=== PATIENT | female | born 1945 | race Caucasian/White ===

== ENCOUNTER 2016-08-15 12:01 | Day surgery (SDC) | payer MEDICARE, OTHER ==
--- NOTE | ~2016-08-15 | OP ---
Record Of Operation [facility] [address] [place]. [address] NAME: ANGI COOLEY : 47 STATUS : REG [facility] [place] PAT#: [id number] AGE: 71 ADM/REG DATE : 08/15/16 MR#: [id number] REPORT SERV DATE: 08/15/16 DICTATED BY: MASON CASSIDY DATE: 08/15/16 REPORT STATUS : Draft TRANSCRIBED BY: MODL DATE: 08/15/16 DATE OF PROCEDURE: 08/15/2016 TIME: 1445 hours. PROCEDURE: Ultrasound guided left-sided thoracentesis. INDICATION: A large left-sided pleural effusion. PROCEDURE COPIER AND PRINTER FIELD TECHNICIAN: Kaleb Cassidy PA-C. CONSENT: Consent was obtained from the patient prior to the procedure. Diagnostic and therapeutic indications for thoracentesis were discussed as well as risks including life- threatening bleeding, pneumothorax, and even the possible necessity of chest tube placement. Benefits and alternatives were explained at length. Prior to the procedure, imaging studies were reviewed with Dr. Hernandez who agreed with the indication to proceed with thoracentesis. PROCEDURE SUMMARY: A time out was performed verifying correct patient, procedure, site, and positioning. The patient's left side was prepped and draped in a sterile manner using chlorhexidine scrub after the appropriate level was percussed and confirmed by ultrasound. U/S images were obtained and placed within the chart. 2% lidocaine with epinephrine was then used to anesthetize the region. A finder needle was then used to attempt aspiration of pleural fluid. Unfortunately, the needle in the kit was not long enough to traverse the patient's 6 cm chest wall depth. Then, a 22-gauge spinal needle was attached to the lidocaine syringe and advanced into the pleural space. Serosanguineous fluid was removed. Continuing on, the patient had 1.9 L of serosanguineous fluid removed. Towards the end of the procedure, the patient did start to cough quite forcefully. At this time, the procedure was stopped briefly. The patient continued to demonstrate a strong cough and as such, the procedure was ended at this point. A postprocedure chest x-ray is pending at the time of this dictation. The fluid will be sent for several studies. ESTIMATED BLOOD LOSS: Minimal. GBS/MODL Mason Cassidy PA-C / [id number] CC: Mason Cassidy PA-C
[~2016-08-15 12:01] MED LIST: ALLER-TEC; ALLER-TEC PO; AMARYL4 PO; APRES25 PO; APRES50 PO; ASA5GR PO; ASAEC PO; BREO ELLIPTA INH; CETIRIZINE PO; DEMA20 PO; FISH-EPA1000 MG PO; HYDRALAZINE100 MG PO; HYDROCHLOROT25 MG PO; IRON PO; IRON325 MG PO; ISOSORB DIN30 MG PO; LEVOTHYROXIN50 MCG PO; LIPITOR40 PO; MUCOMYST; MULTI-VIT HP OR; NORV10 PO; OTC VITAMIN D PO; PROAIR HFA; PROAIR HFA INH; SODBICAR10 PO; SYN.025B PO; TRANDAT100 PO; VITAMIN D31000 UNIT PO; ZYRTEC ALLGY10 MG PO
[2016-08-15 12:25] LABS: BASOPHILS 0.2 %; BASOPHILS ABSOLUTE 0.01 10/3/uL (0.0-0.16); EOSINOPHILS 2.4 %; HEMATOCRIT 28.3 % (36.0-48.0); LYMPHOCYTES 17.1 %; LYMPHOCYTES ABSOLUTE 0.72 10/3/uL (0.67-4.30); MEAN CORPUS HGB CONC 31.8 g/dL (32.0-36.0); MEAN CORPUSCULAR VOLUME 87.9 fL (80-100); MEAN PLATELET VOLUME 8.6 fL (9.2-13.0); MONOCYTES 8.1 %; MONOCYTES ABSOLUTE 0.34 10/3/uL (0.21-1.20); NEUTROPHILS 72.2 %; NEUTROPHILS ABSOLUTE 3.05 10/3/uL (2.02-8.40); PLATELET COUNT 144 10/3/uL (150-400); RBC DISTRIBUTION WIDTH 15.4 % (12.0-16.0); RED CELL COUNT 3.22 10/6/uL (4.0-5.6); WHITE BLOOD CELLS 4.2 10/3/uL (4.5-10.5)
[2016-08-15 12:26] LABS: MANUAL DIFF NO %
[2016-08-15 12:33] LABS: INTERNATIONAL NORMAL RATI 1.1 UNITS (-); PROTIME (NOT ORD) 14.5 SEC (12.0-14.5)
[2016-08-15 16:05] LABS: TOTAL PROTEIN 6.4 G/DL (6.0-8.5)
[2016-08-15 16:55] LABS: GLUCOSE BODY FL (NOT ORD) 158 MG/DL; LDH BODY FLUID (NOT ORD) 118 U/L; PROTEIN BODY FLUID 3.9 G/DL
[2016-08-15 17:40] LABS: BD FL LYMPH (NOT ORD) 22 %; BD FL SOURCE (NOT ORD) LEFT PLEURAL FLUID; BF BASO (NOT OF) 0 %; BF LARGE MONONUCLEAR 74 %; BODY FLUID EOS (NOT ORD) 0 %; BODY FLUID SEG (NOT ORD) 4 %
[2016-08-15 18:04] LABS: BF TOTAL CELL CT (NOT ORD 562 /MM3; BODY FLUID RBC (NOT ORD) 6666 /MM3
[2016-09-16] MEDS ORDERED: FLONASE NAS (17:49)
[2016-09-16] MEDS ORDERED: ULORIC40 MG PO (17:50)
[2016-11-25] MEDS ORDERED: LEVAQUIN750 MG PO (00:05)
[2016-11-25] MEDS ORDERED: SODBICAR10 PO (00:05)
[2016-11-25] MEDS ORDERED: ZYRTEC ALLGY10 MG PO (00:05)
[2016-11-25] MEDS ORDERED: HYDRALAZINE100 MG PO (00:05)
[2016-11-25] MEDS ORDERED: ULORIC40 MG PO (00:06)
[2016-11-25] MEDS ORDERED: TRANDAT100 PO (00:06)
[2016-11-25] MEDS ORDERED: HCTZ25B PO (00:07)
[2016-11-25] MEDS ORDERED: SYN.025B PO (00:08)
[2016-11-25] MEDS ORDERED: NORV5 PO (00:08)
[2016-11-25] MEDS ORDERED: COZAAR100 MG PO (00:08)
[2016-11-25] MEDS ORDERED: LIPITOR40 PO (00:08)
[2016-11-25] MEDS ORDERED: BREO ELLIPTA INH (00:09)
[2016-11-25] MEDS ORDERED: ISORDIL20 PO (00:12)
[2016-11-25] MEDS ORDERED: VITAMIN D31000 UNIT PO (00:13)
[2016-11-25] MEDS ORDERED: FLONASE NAS (00:13)
[2016-11-25] MEDS ORDERED: PROAIR HFA INH (00:14)
[2016-12-03] MEDS ORDERED: FOLIC PO (13:48)
[2016-12-03] MEDS ORDERED: NORCO1 TA1 PO (13:48)
[2016-12-03] MEDS ORDERED: CARDCD180 PO (13:49)
[2016-12-03] MEDS ORDERED: DEMA100 PO (13:49)
== END 2016-08-15 23:59 | disposition home or self-care (01) ==
LOC: DMU 12:01
PROVIDERS: Physician Assistant Medical
PROC: BB4BZZZ Ultrasonography of Pleura (ICD-10-PCS; 2016-08-15)
PROC: 0W9B3ZZ Drainage of Left Pleural Cavity, Percutaneous Approach (ICD-10-PCS; principal; 2016-08-15 13:00)
DX: J90 Pleural effusion, not elsewhere classified (principal); J45.40 Moderate persistent asthma, uncomplicated; I13.0 Hypertensive heart and chronic kidney disease with heart failure and stage 1 through stage 4 chronic kidney disease, or unspecified chronic kidney disease; E11.22 Type 2 diabetes mellitus with diabetic chronic kidney disease; E11.42 Type 2 diabetes mellitus with diabetic polyneuropathy; N18.9 Chronic kidney disease, unspecified; I50.9 Heart failure, unspecified; I71.4 Abdominal aortic aneurysm, without rupture; I25.10 Atherosclerotic heart disease of native coronary artery without angina pectoris; E03.8 Other specified hypothyroidism; E78.5 Hyperlipidemia, unspecified; F32.9 Major depressive disorder, single episode, unspecified; M19.90 Unspecified osteoarthritis, unspecified site; E03.9 Hypothyroidism, unspecified; E78.00 Pure hypercholesterolemia, unspecified; M85.80 Other specified disorders of bone density and structure, unspecified site; Z87.891 Personal history of nicotine dependence; Z88.0 Allergy status to penicillin; Z83.79 Family history of other diseases of the digestive system; Z83.6 Family history of other diseases of the respiratory system; Z80.9 Family history of malignant neoplasm, unspecified; Z80.0 Family history of malignant neoplasm of digestive organs; Z79.51 Long term (current) use of inhaled steroids; Z96.1 Presence of intraocular lens; Z98.41 Cataract extraction status, right eye; Z79.899 Other long term (current) drug therapy
CPT/HCPCS: 71010; 82945; 83615; 83986; 84155; 84157; 85025; 85610; 85730; 87015; 87070; 87102; 87116; 87205; 88112; 88305; 89051

== ENCOUNTER 2016-09-22 09:25 | Inpatient (IN) | payer MEDICARE, OTHER ==
[2016-09-16 17:30] LABS: BASOPHILS 0.5 %; BASOPHILS ABSOLUTE 0.02 10/3/uL (0.0-0.16); EOSINOPHILS 3.3 %; EOSINOPHILS ABSOLUTE 0.12 10/3/uL (0.0-0.53); HEMATOCRIT 29.5 % (36.0-48.0); HEMOGLOBIN 9.8 g/dL (12.0-16.0); LYMPHOCYTES 24.7 %; MEAN CORPUS HGB CONC 33.2 g/dL (32.0-36.0); MEAN CORPUSCULAR HEMOGLOB 28.4 pg (26.0-34.0); MEAN CORPUSCULAR VOLUME 85.5 fL (80-100); MEAN PLATELET VOLUME 9.1 fL (9.2-13.0); MONOCYTES ABSOLUTE 0.29 10/3/uL (0.21-1.20); NEUTROPHILS 63.5 %; NEUTROPHILS ABSOLUTE 2.31 10/3/uL (2.02-8.40); PLATELET COUNT 133 10/3/uL (150-400); RED CELL COUNT 3.45 10/6/uL (4.0-5.6); WHITE BLOOD CELLS 3.6 10/3/uL (4.5-10.5)
[2016-09-16 17:34] LABS: INTERNATIONAL NORMAL RATI 1.1 UNITS (-); MANUAL DIFF NO %; PROTIME (NOT ORD) 14.3 SEC (12.0-14.5)
[2016-09-16 17:41] LABS: ASCORBIC ACID (UR NOT ORDER) NEG (NEG); BILIRUBIN, URINE NEGATIVE (NEG); KETONE, URINE NEGATIVE (NEG); LEUKOCYTE ESTERASE(NOT OR NEG (NEG); WBC (NOT ORDERED) (RFLEX) 1 (0-5)
[2016-09-16 18:05] LABS: ALBUMIN 3.5 G/DL (3.5-5.0); ALKALINE PHOSPHATASE 83 U/L (45-117); CALCIUM, SERUM 9.3 MG/DL (8.5-10.4); CHLORIDE, SERUM 109 MMOL/L (96-112); CO2 (CARBON DIOXIDE) 24 MMOL/L (24-34); CREATININE 2.18 MG/DL (0.55-1.02); GFR AFRICAN AMERICAN 26 ML/MIN (>=60); GFR NON AFRICAN AMERICAN 22 ML/MIN (>=60); GLUCOSE, SERUM 133 MG/DL (60-99); POTASSIUM, SERUM 4.4 MMOL/L (3.5-5.3); SGOT(AST) 17 U/L (5-40); SGPT(ALT) 11 U/L (5-65); SODIUM, SERUM 143 MMOL/L (135-148); TOTAL BILIRUBIN 0.5 MG/DL (0-1.2)
[2016-09-16 18:06] LABS: BUN (BLOOD UREA NITROGEN) 49 MG/DL (6-23); GLOBULIN 3.5 G/DL (2.5-4.1)
--- NOTE | ~2016-09-22 | OP ---
Record Of Operation [facility] [address] [place]. [address] NAME: ANGI COOLEY : 47 STATUS : ADM IN PAT#: [id number] AGE: 71 ADM/REG DATE : 09/22/16 MR#: [id number] REPORT SERV DATE: 09/22/16 DICTATED BY: KAREN LIZ JR. DATE: 09/22/16 REPORT STATUS : Draft TRANSCRIBED BY: MODDilcia DATE: 09/22/16 DATE OF PROCEDURE: 09/22/2016 PREOPERATIVE DIAGNOSES: Chronic kidney disease stage 3, recurrent left pleural effusion, increased body mass index, status post recent pneumonia, type 2 hrl-uglmdyq-oxztjgckx diabetes mellitus, hypertension, atherosclerosis with coronary artery disease. POSTOPERATIVE DIAGNOSES: Chronic kidney disease stage 3, recurrent left pleural effusion, increased body mass index, status post recent pneumonia, type 2 nxo-nvrynfv-vnxeonomq diabetes mellitus, hypertension, atherosclerosis with coronary artery disease. NAME OF OPERATION: Bronchoscopy, left thoracoscopy with exploration, left parietal pleural biopsy, complete decortication, chemical pleurodesis with Betadine, placement of PleurX catheter, and intercostal nerve block. SURGEON: Karen Liz M.D. SUPERVISOR MIRROR FABRICATION: Myra Cee. RESIDENT SURGEON: Sidney Yu MD. ANESTHESIOLOGIST: Carlos Aguero M.D. ANESTHESIA: General endotracheal. FINDINGS: The patient was noted to have several liters of serous fluid within her chest cavity. Surprisingly, this fluid was not loculated. It had more of a uremic appearance to it. The parietal pleura had more of a chronic inflammatory look to it. There was a peel encompassing the upper and lower lobe that looked more from chronic inflammation as opposed to an acute pneumonic process. This looked like it had been longstanding. The fluid was easily evacuated. We were able to get the lung decorticated. We could get full re- expansion into the chest cavity. Given the chronicity and the look of the parietal pleura, we felt that assistance is going to be needed with the pleurodesis. We placed Betadine in the chest cavity given that we do not have talc. We also placed a PleurX catheter in case the pleurodesis fails. There was good reexpansion of both lobes into the case. The fluid was sent for cytology and cultures. The parietal pleura was sent for pathology. Final pathology is pending. DETAILS OF OPERATION: After adequate general anesthesia, the patient was intubated. A bronchoscopy was performed noting no endobronchial lesions. Thick mucous secretions were evacuated. A left-sided double-lumen endotracheal tube was then placed. The patient was then positioned in the right lateral decubitus position with the left chest was prepped and draped in routine sterile fashion. A single trocar incision was made with dissection carried down into the pleural space. The fluid was evacuated and sent for studies as described above. The parietal pleura looks chronically inflamed, but it was not an acute process. Biopsies were performed. The fluid was evacuated in all areas. The fissure was Record Of Operation [address] [address] NAME: ANGI COOLEY : 47 STATUS : ADM IN [facility]#: [id number] AGE: 71 ADM/REG DATE : 09/22/16 MR#: [id number] REPORT SERV DATE: 09/22/16 DICTATED BY: KAREN LIZ JR. DATE: 09/22/16 REPORT STATUS : Draft TRANSCRIBED BY: UNRULY DATE: 09/22/16 opened up. The lung was decorticated. It was felt given the chronicity to this, the pleurodesis was not certain. I was also concerned by the nature of the fluid, this may be related to her renal failure. This patient is more difficult to pleurodese. A Betadine was placed in chest cavity. A 20 mL of Betadine mixed with 80 mL normal saline was placed in chest cavity. A PleurX catheter as well as a 32-Fijian chest tube were placed. Both catheters were secured with silk suture. An intercostal nerve block was performed. The lung was reinflated. Trocar sites were closed with running Vicryl sutures. The skin was closed with running monofilament suture. A Dermabond dressing was applied. The procedure was terminated at this point. The patient tolerated the procedure well and taken back to recovery room in stable condition. NIKOLAS/UNRULY Karen Liz Jr., M.D. / [id number] CC: Valerio Cummings Jr., M.D. John McCarley, M.D. Hisham F. Qutob, MD Benjamin R Nadeau, MD
--- NOTE | ~2016-09-22 | DS ---
Discharge Summary [facility] [address] [place]. [address] NAME: ANGI COOLEY : 47 STATUS : DIS IN PAT#: [id number] AGE: 71 ADM/REG DATE : 09/22/16 MR#: [id number] REPORT SERV DATE: 10/04/16 DICTATED BY: KAREN LIZ JR. DATE: 10/03/16 REPORT STATUS : Draft TRANSCRIBED BY: UNRULY DATE: 10/03/16 Data Collection from hospitalization DISCHARGE DIAGNOSES: 1. Chronic kidney disease, stage 3. 2. Recurrent left pleural effusion. 3. Increased body mass index. 4. History of recent pneumonia. 5. Type 2 pky-arygeea-ajxoqekfg diabetes mellitus. 6. Hypertension. 7. Atherosclerosis with coronary artery disease. 8. Hyperkalemia. 9. History of anemia. 10.Obesity. CONSULTATIONS: None. PROCEDURES: Bronchoscopy, left thoracoscopy with exploration, left parietal pleural biopsy, complete decortication, chemical pleurodesis with Betadine, placement of PleurX catheter, and intercostal nerve block on 09/22/2016. PATHOLOGY: Pleural fluid left aspiration (smears, ThinPrep, and cell block)-benign. No malignant cells identified. DISCHARGE MEDICATIONS: ProAir as instructed, Norvasc 5 mg every morning, Lipitor 40 mg at bedtime, vitamin D3 2000 units every morning, Uloric 40 mg daily, Flonase nasal spray one spray nasally daily, Breo Ellipta one puff via inhaler every morning, hydrochlorothiazide 25 mg every morning, hydralazine 100 mg every eight hours, Isordil 30 mg twice a day, Trandate 100 mg twice a day, Synthroid 25 mcg every morning, fish oil 1000 mg every day at bedtime, Percocet 5/325 one-two tablets every four hours as needed, sodium bicarb 1300 mg three times a day, and Demadex 50 mg every morning. CONDITION AT DISCHARGE: Stable. DISPOSITION: The patient was discharged home to be followed by home health care on a regular diet with activities as instructed. She will follow up with me on 10/27/2016. HOSPITAL COURSE: This is a 71-year-old female who has a loculated left pleural effusion. She is status post ultrasound-guided thoracentesis. She has dyspnea and chronic kidney disease. She was felt to likely have a parapneumonic left pleural effusion with loculated component. Treatment options were discussed and it was elected to proceed with surgical intervention. She was admitted to the hospital at this time for further evaluation and treatment. Upon admission, she was taken to the operating room where she underwent the above-mentioned procedure. She tolerated this well and there were no complications. On postop day #1, urine output was adequate. O2 saturation was 93% on 2 L. Her wounds were clean, dry, and intact. Her blood pressure medications were started. She had good pain control. On postop Discharge Summary [address] [address] NAME: ANGI COOLEY : 47 STATUS : DIS IN PAT#: [id number] AGE: 71 ADM/REG DATE : 09/22/16 MR#: [id number] REPORT SERV DATE: 10/04/16 DICTATED BY: KAREN LIZ JR. DATE: 10/03/16 REPORT STATUS : Draft TRANSCRIBED BY: UNRULY DATE: 10/03/16 day #2, she was evaluated by Physical Therapy. She continued to have good pain control. Pathology results were reviewed. The left pleural fluid had no malignant cells. Left pleural biopsy revealed no malignancy. On 09/25/2016, the epidural catheter was removed and the tip was intact. Discharge instructions were given. Due to her improved and stable condition, she was discharged home to be followed by home health care with the above-stated instructions. Information collected by: Mickie Hensley I submit the above information as my discharge summary. CAROL/UNRULY Karen Liz Jr., M.D. / [id number] CC: Valerio Cummings Jr., M.D.
[~2016-09-22 09:25] MED LIST changes: +FLONASE NAS; +ULORIC40 MG PO
[2016-09-22 15:20] LABS: BASOPHILS 0.5 %; BASOPHILS ABSOLUTE 0.03 10/3/uL (0.0-0.16); EOSINOPHILS 1.1 %; EOSINOPHILS ABSOLUTE 0.07 10/3/uL (0.0-0.53); IMMATURE GRANULOCYTES 0.3 %; IMMATURE GRANULOCYTES ABSOLUTE 0.02 10/3/uL (0.0-0.11); LYMPHOCYTES 12.3 %; LYMPHOCYTES ABSOLUTE 0.82 10/3/uL (0.67-4.30); MEAN CORPUS HGB CONC 33.3 g/dL (32.0-36.0); MEAN CORPUSCULAR HEMOGLOB 28.9 pg (26.0-34.0); MEAN CORPUSCULAR VOLUME 86.7 fL (80-100); MEAN PLATELET VOLUME 8.4 fL (9.2-13.0); MONOCYTES 6.3 %; MONOCYTES ABSOLUTE 0.42 10/3/uL (0.21-1.20); NEUTROPHILS 79.5 %; NEUTROPHILS ABSOLUTE 5.29 10/3/uL (2.02-8.40); PLATELET COUNT 120 10/3/uL (150-400); RBC DISTRIBUTION WIDTH 15.5 % (12.0-16.0); RED CELL COUNT 3.46 10/6/uL (4.0-5.6)
[2016-09-22 15:22] LABS: MANUAL DIFF NO %; WHITE BLOOD CELLS 6.7 10/3/uL (4.5-10.5)
[2016-09-22 15:29] LABS: CHLORIDE, SERUM 109 MMOL/L (96-112); CO2 (CARBON DIOXIDE) 28 MMOL/L (24-34); CREATININE 2.59 MG/DL (0.55-1.02); GFR AFRICAN AMERICAN 21 ML/MIN (>=60); GFR NON AFRICAN AMERICAN 18 ML/MIN (>=60); SODIUM, SERUM 142 MMOL/L (135-148)
[2016-09-22 15:31] LABS: BUN (BLOOD UREA NITROGEN) 55 MG/DL (6-23); CALCIUM, SERUM 8.3 MG/DL (8.5-10.4); GLUCOSE, SERUM 164 MG/DL (60-99); POTASSIUM, SERUM 5.7 MMOL/L (3.5-5.3)
[2016-09-23 05:50] LABS: BASOPHILS 0 %; EOSINOPHILS 0 %; HEMATOCRIT 29.9 % (36.0-48.0); IMMATURE GRANULOCYTES 0.2 %; IMMATURE GRANULOCYTES ABSOLUTE 0.01 10/3/uL (0.0-0.11); LYMPHOCYTES 10.2 %; MEAN CORPUS HGB CONC 33.4 g/dL (32.0-36.0); MEAN CORPUSCULAR HEMOGLOB 28.7 pg (26.0-34.0); MEAN CORPUSCULAR VOLUME 85.9 fL (80-100); MEAN PLATELET VOLUME 9.3 fL (9.2-13.0); MONOCYTES 5.1 %; NEUTROPHILS 84.5 %; PLATELET COUNT 135 10/3/uL (150-400); RBC DISTRIBUTION WIDTH 15.5 % (12.0-16.0); RED CELL COUNT 3.48 10/6/uL (4.0-5.6); WHITE BLOOD CELLS 5.9 10/3/uL (4.5-10.5)
[2016-09-23 05:53] LABS: MANUAL DIFF NO %
[2016-09-23 05:55] LABS: BUN (BLOOD UREA NITROGEN) 55 MG/DL (6-23); CALCIUM, SERUM 8.9 MG/DL (8.5-10.4); CHLORIDE, SERUM 106 MMOL/L (96-112); CREATININE 2.45 MG/DL (0.55-1.02); GFR AFRICAN AMERICAN 22 ML/MIN (>=60); GFR NON AFRICAN AMERICAN 19 ML/MIN (>=60); GLUCOSE, SERUM 132 MG/DL (60-99); POTASSIUM, SERUM 5.4 MMOL/L (3.5-5.3); SODIUM, SERUM 138 MMOL/L (135-148)
[2016-09-23 05:56] LABS: CO2 (CARBON DIOXIDE) 23 MMOL/L (24-34)
[2016-09-25 04:32] LABS: BASOPHILS 0.3 %; BASOPHILS ABSOLUTE 0.01 10/3/uL (0.0-0.16); CALCIUM, SERUM 8.6 MG/DL (8.5-10.4); CHLORIDE, SERUM 103 MMOL/L (96-112); CO2 (CARBON DIOXIDE) 27 MMOL/L (24-34); CREATININE 2.84 MG/DL (0.55-1.02); EOSINOPHILS 2.4 %; EOSINOPHILS ABSOLUTE 0.08 10/3/uL (0.0-0.53); GFR AFRICAN AMERICAN 19 ML/MIN (>=60); GFR NON AFRICAN AMERICAN 16 ML/MIN (>=60); GLUCOSE, SERUM 115 MG/DL (60-99); HEMATOCRIT 27.1 % (36.0-48.0); HEMOGLOBIN 9.1 g/dL (12.0-16.0); LYMPHOCYTES 27.9 %; LYMPHOCYTES ABSOLUTE 0.94 10/3/uL (0.67-4.30); MEAN CORPUS HGB CONC 33.6 g/dL (32.0-36.0); MEAN CORPUSCULAR HEMOGLOB 29.1 pg (26.0-34.0); MEAN CORPUSCULAR VOLUME 86.6 fL (80-100); MEAN PLATELET VOLUME 9.3 fL (9.2-13.0); MONOCYTES ABSOLUTE 0.37 10/3/uL (0.21-1.20); NEUTROPHILS 58.4 %; NEUTROPHILS ABSOLUTE 1.97 10/3/uL (2.02-8.40); PLATELET COUNT 137 10/3/uL (150-400); POTASSIUM, SERUM 5.2 MMOL/L (3.5-5.3); RBC DISTRIBUTION WIDTH 15.6 % (12.0-16.0); RED CELL COUNT 3.13 10/6/uL (4.0-5.6); SODIUM, SERUM 139 MMOL/L (135-148)
[2016-09-25 04:33] LABS: MANUAL DIFF NO %; WHITE BLOOD CELLS 3.4 10/3/uL (4.5-10.5)
[2016-09-25 04:38] LABS: BUN (BLOOD UREA NITROGEN) 62 MG/DL (6-23)
[2016-09-25] MEDS ORDERED: PCET PO (08:38)
[2016-11-25] MEDS ORDERED: ZYRTEC ALLGY10 MG PO (00:05)
[2016-11-25] MEDS ORDERED: LEVAQUIN750 MG PO (00:05)
[2016-11-25] MEDS ORDERED: SODBICAR10 PO (00:05)
[2016-11-25] MEDS ORDERED: HYDRALAZINE100 MG PO (00:05)
[2016-11-25] MEDS ORDERED: ULORIC40 MG PO (00:06)
[2016-11-25] MEDS ORDERED: TRANDAT100 PO (00:06)
[2016-11-25] MEDS ORDERED: HCTZ25B PO (00:07)
[2016-11-25] MEDS ORDERED: COZAAR100 MG PO (00:08)
[2016-11-25] MEDS ORDERED: NORV5 PO (00:08)
[2016-11-25] MEDS ORDERED: SYN.025B PO (00:08)
[2016-11-25] MEDS ORDERED: LIPITOR40 PO (00:08)
[2016-11-25] MEDS ORDERED: BREO ELLIPTA INH (00:09)
[2016-11-25] MEDS ORDERED: ISORDIL20 PO (00:12)
[2016-11-25] MEDS ORDERED: VITAMIN D31000 UNIT PO (00:13)
[2016-11-25] MEDS ORDERED: FLONASE NAS (00:13)
[2016-11-25] MEDS ORDERED: PROAIR HFA INH (00:14)
[2016-12-03] MEDS ORDERED: FOLIC PO (13:48)
[2016-12-03] MEDS ORDERED: NORCO1 TA1 PO (13:48)
[2016-12-03] MEDS ORDERED: DEMA100 PO (13:49)
[2016-12-03] MEDS ORDERED: CARDCD180 PO (13:49)
== END 2016-09-25 17:25 | disposition home health service (06) | DRG 164 ==
LOC: SDC/OF 09:25 → PACU 15:02 → 5NO 17:14
PROVIDERS: Nurse Practitioner Acute Care; Thoracic Surgery (Cardiothoracic Vascular Surgery)
PROC: 0BBP4ZX Excision of Left Pleura, Percutaneous Endoscopic Approach, Diagnostic (ICD-10-PCS; 2016-09-22)
PROC: 0BJ08ZZ Inspection of Tracheobronchial Tree, Via Natural or Artificial Opening Endoscopic (ICD-10-PCS; 2016-09-22)
PROC: 3E0L3GC Introduction of Other Therapeutic Substance into Pleural Cavity, Percutaneous Approach (ICD-10-PCS; 2016-09-22)
PROC: 3E0T3BZ Introduction of Anesthetic Agent into Peripheral Nerves and Plexi, Percutaneous Approach (ICD-10-PCS; 2016-09-22)
PROC: 0BDP4ZZ Extraction of Left Pleura, Percutaneous Endoscopic Approach (ICD-10-PCS; principal; 2016-09-22 12:15)
DX: J90 Pleural effusion, not elsewhere classified (principal); Z68.41 Body mass index [BMI] 40.0-44.9, adult; N18.3 Chronic kidney disease, stage 3 (moderate); J98.11 Atelectasis; E11.9 Type 2 diabetes mellitus without complications; I12.9 Hypertensive chronic kidney disease with stage 1 through stage 4 chronic kidney disease, or unspecified chronic kidney disease; Z79.4 Long term (current) use of insulin; I25.10 Atherosclerotic heart disease of native coronary artery without angina pectoris; E66.9 Obesity, unspecified
CPT/HCPCS: 36415; 71010; 71020; 80048; 80053; 81001; 82962; 85025; 85610; 86850; 86900; 86901; 87015; 87070; 87075; 87102; 87116; 87205; 87641; 88112; 88305; 93005; 94640; 97161-GP; A9270-GY; C1729; G8978-CI-GP; G8979-CI-GP; G8980-CI-GP; J0360; J1580; J2250; J2370; J2405; J2710; J2795; J3010; J3370